=== PATIENT | female | born 1980 | race American Indian/Alaskan Native ===

== ENCOUNTER 2018-10-10 08:42 | Emergency (ER) | payer MEDICAID ==
[2018-10-10] MEDS ORDERED: SOLU-Medrol IM ONE (09:18)
[2018-10-10] MEDS ORDERED: PROVENTIL IH ONE (09:18)
[2018-10-10] MEDS ORDERED: ZITHROMAX PO ONE (09:19)
--- NOTE | 2018-10-10 09:19 | Emergency Department Report ---
Minor Respiratory - HPI Chief Complaint: Adult Asthma Stated Complaint: ASTHMA/BACK PAIN Time Seen by Provider: 10/10/18 09:15 Duration: 3 Days Pain Location: Chest Severity: mild Minor Respiratory: Yes Able to Tolerate Fluids, Yes Shortness of Breath, No Rhinorrhea, No Sore Throat, No Ear Pain, No Cough, No Sick Contacts, No Hemoptysis, No Chest Pain, No Fever Other History: She is a 37-year-old -[place] female who comes to the ER today with complaint of her asthma acting up. She states that she has had shortness of breath and wheezing with activity. Sat on admission was 98% on room air. She denies chest pain. Patient does state that she has been intubated numerous times in the past. Patient is on Ventolin and Proventil at home. However these are not helping. ED Review of Systems ROS: Stated complaint: ASTHMA/BACK PAIN Other details as noted in HPI Comment: All other systems reviewed and negative Constitutional: denies: chills, fever Eyes: denies: eye pain ENT: denies: ear pain Respiratory: see HPI, SOB with exertion, wheezing. denies: cough, orthopnea, shortness of breath Cardiovascular: denies: chest pain Endocrine: denies: excessive sweating Gastrointestinal: denies: abdominal pain Genitourinary: denies: urgency Musculoskeletal: denies: back pain Skin: denies: rash Neurological: denies: headache Psychiatric: denies: anxiety Hematological/Lymphatic: denies: easy bleeding ED Past Medical Hx - Past Medical History Hx Psychiatric Treatment: Yes (anxiety) Hx Asthma: Yes Additional medical history: intubated x 5 - Surgical History Past Surgical History?: Yes Additional Surgical History: hernia repair 2011, x2,tubiligation - Social History Smoking Status: Current Every Day Smoker Substance Use Type: None - Medications Home Medications: Home Medications Medication Instructions Recorded Confirmed Last Taken Type ALBUTEROL NEB's [Proventil] 2.5 mg IH Q6H PRN #1 pack 09/10/18 Unknown Rx Albuterol Sulfate [Ventolin Hfa] 18 gm IH Q6H PRN #1 hfa.aer.ad 09/10/18 Unknown Rx Azithromycin 250 mg PO DAILY #4 tablet 10/10/18 Unknown Rx predniSONE [Deltasone] 20 mg PO QDAY #5 tab 10/10/18 Unknown Rx Minor Respiratory Exam - Exam General: Vital signs noted. No distress. Alert and acting appropriately. HEENT: Yes Moist Mucous Membranes, No Pharyngeal Erythema, No Pharyngeal Exudates, No Rhinorrhea, No Conjuctival Injection, No Frontal Tenderness, No Maxillary Tenderness Ear: Neither TM Bulge, Neither TM Erythema, Neither EAC Pain, Neither EAC Discharge Neck: Yes Supple, No Adenopathy Lungs: Yes Good Air Exchange, Yes Wheezes, No Ronchi, No Stridor, No Cough, No Labored Respirations, No Retractions, No Use of Accessory Muscles, No Other Abnormal Lung Sounds Heart: Yes Regular (hr on reexam 100 p tx), No Murmur Abdomen: Yes Normal Bowel Sounds, No Tenderness, No Peritoneal Signs Skin: No Rash, No Edema Neurologic: Alert and oriented, no deficits. Musculoskeletal: Unremarkable. ED Course Vital Signs 10/10/18 09:04 Temperature 98.1 F Pulse Rate 121 H Respiratory 20 Rate Blood Pressure 128/78 O2 Sat by Pulse 98 Oximetry ED Medical Decision Making - Medical Decision Making duoneb and solumederol improved wheezing sat 99 on room air denies sob pt states she has to leave to go to orientation has inhalers with her - Differential Diagnosis asthma ae Critical care attestation.: If time is entered above; I have spent that time in minutes in the direct care of this critically ill patient, excluding procedure time. ED Disposition Clinical Impression: Asthma with acute exacerbation Disposition: TO HOME OR SELFCARE Is pt being admited?: No Does the pt Need Aspirin: No Condition: Stable Instructions: Asthma (ED) Prescriptions: Azithromycin 250 mg PO DAILY #4 tablet predniSONE [Deltasone] 20 mg PO QDAY #5 tab Referrals: PRIMARY CARE, [Primary Care Provider] - 3-5 Days Time of Disposition: 10:01
[2018-10-10] MEDS ORDERED: DUONEB *Not for PRN Use IH ONE (09:21)
[2018-10-10 10:43] VITALS: BP 147/85
== END 2018-10-10 10:40 | disposition home or self-care (01) ==
LOC: ED 08:42
DX: J45.901 Unspecified asthma with (acute) exacerbation (principal); F41.9 Anxiety disorder, unspecified; F17.200 Nicotine dependence, unspecified, uncomplicated; Z98.51 Tubal ligation status
CPT/HCPCS: 94640; 96372; 99282; J2930

== ENCOUNTER 2018-10-30 08:54 | Emergency (ER) | payer MEDICAID ==
[2018-10-30] MEDS ORDERED: PROVENTIL IH ONE (10:00)
[2018-10-30] MEDS ORDERED: SOLU-Medrol IM ONE (10:00)
[2018-10-30] MEDS ORDERED: ATROVENT IH ONE (10:00)
[2018-10-30] MEDS ORDERED: ULTRAM PO ONE (10:07)
--- NOTE | 2018-10-30 10:12 | Emergency Department Report ---
ED General Adult HPI - General Chief complaint: Upper Respiratory Infection Stated complaint: BACK PAIN/WHEEZING Time Seen by Provider: 10/30/18 09:41 Source: patient Mode of arrival: Ambulatory Limitations: No Limitations - History of Present Illness Initial comments: Patient presents to the emergency department with a chief complaint of increased wheezing, coughing and congestion for the last couple days. Patient has a history of asthma and is currently using her Advair inhaler and every 4 hours breathing treatments. Patient is also using a rescue inhaler in between those treatments. Patient denies any chest pain, abdominal pain, headache. But does complain of some upper back pain from coughing. -: Gradual Location: back Severity scale (0 -10): 3 Quality: aching Consistency: constant Improves with: none Worsens with: none Associated Symptoms: denies other symptoms Treatments Prior to Arrival: none - Related Data Previous Rx's Medication Instructions Recorded Last Taken Type ALBUTEROL NEB's [Proventil] 2.5 mg IH Q6H PRN #1 pack 09/10/18 Unknown Rx Albuterol Sulfate [Ventolin Hfa] 18 gm IH Q6H PRN #1 hfa.aer.ad 09/10/18 Unknown Rx Azithromycin 250 mg PO DAILY #4 tablet 10/10/18 Unknown Rx predniSONE [Deltasone] 20 mg PO QDAY #5 tab 10/10/18 Unknown Rx predniSONE [Deltasone] 20 mg PO QDAY #15 tab 10/30/18 Unknown Rx Allergies Allergy/AdvReac Type Severity Reaction Status Date / Time No Known Allergies Allergy Verified 10/30/18 09:07 ED Review of Systems ROS: Stated complaint: BACK PAIN/WHEEZING Other details as noted in HPI Comment: All other systems reviewed and negative Constitutional: denies: chills, fever Eyes: denies: eye pain, eye discharge, vision change ENT: denies: ear pain, throat pain Respiratory: cough. denies: shortness of breath, wheezing Cardiovascular: denies: chest pain, palpitations Endocrine: no symptoms reported Gastrointestinal: denies: abdominal pain, nausea, diarrhea Genitourinary: denies: urgency, dysuria, discharge Musculoskeletal: denies: back pain, joint swelling, arthralgia Skin: denies: rash, lesions Neurological: denies: headache, weakness, paresthesias Psychiatric: denies: anxiety, depression Hematological/Lymphatic: denies: easy bleeding, easy bruising ED Past Medical Hx - Past Medical History Hx Psychiatric Treatment: Yes (anxiety) Hx Asthma: Yes Additional medical history: intubated x 5 - Surgical History Additional Surgical History: hernia repair 2012, x2,tubiligation - Social History Smoking Status: Current Every Day Smoker Substance Use Type: None - Medications Home Medications: Home Medications Medication Instructions Recorded Confirmed Last Taken Type ALBUTEROL NEB's [Proventil] 2.5 mg IH Q6H PRN #1 pack 09/10/18 Unknown Rx Albuterol Sulfate [Ventolin Hfa] 18 gm IH Q6H PRN #1 hfa.aer.ad 09/10/18 Unknown Rx Azithromycin 250 mg PO DAILY #4 tablet 10/10/18 Unknown Rx predniSONE [Deltasone] 20 mg PO QDAY #5 tab 10/10/18 Unknown Rx predniSONE [Deltasone] 20 mg PO QDAY #15 tab 10/30/18 Unknown Rx ED Physical Exam - General Limitations: No Limitations General appearance: alert, in no apparent distress - Head Head exam: Present: atraumatic, normocephalic - Eye Eye exam: Present: normal appearance, PERRL, EOMI - ENT ENT exam: Present: mucous membranes moist - Neck Neck exam: Present: normal inspection - Respiratory Respiratory exam: Present: normal lung sounds bilaterally, wheezes. Absent: respiratory distress, rales - Cardiovascular Cardiovascular Exam: Present: regular rate, normal rhythm. Absent: systolic murmur, diastolic murmur, rubs, gallop - GI/Abdominal GI/Abdominal exam: Present: soft, normal bowel sounds. Absent: distended, tenderness - Extremities Exam Extremities exam: Present: normal inspection - Back Exam Back exam: Present: normal inspection - Neurological Exam Neurological exam: Present: alert, oriented X3, CN II-XII intact. Absent: motor sensory deficit - Psychiatric Psychiatric exam: Present: normal affect, normal mood - Skin Skin exam: Present: warm, dry, intact, normal color. Absent: rash ED Course Vital Signs 10/30/18 10:18 Pulse Rate [ 84 Bilateral] Respiratory 18 Rate [Bilateral ] ED Medical Decision Making - Medical Decision Making improved after hour long breathing tx Critical care attestation.: If time is entered above; I have spent that time in minutes in the direct care of this critically ill patient, excluding procedure time. ED Disposition Clinical Impression: Asthma Disposition: DC- TO HOME OR SELFCARE Is pt being admited?: No Does the pt Need Aspirin: No Condition: Stable Instructions: Asthma (ED) Additional Instructions: return if worse Prescriptions: predniSONE [Deltasone] 20 mg PO QDAY #15 tab Referrals: ELLEN SLOAN MD [Primary Care Provider] - 3-5 Days [facility] [Provider Group] - 3-5 Days [facility] [Provider Group] - 3-5 Days Time of Disposition: 11:35
== END 2018-10-30 11:54 | disposition home or self-care (01) ==
LOC: ED 08:54
DX: J45.909 Unspecified asthma, uncomplicated (principal); F41.9 Anxiety disorder, unspecified; F17.200 Nicotine dependence, unspecified, uncomplicated
CPT/HCPCS: 94640; 96372; 99282; J2930

== ENCOUNTER 2019-03-03 09:28 | Emergency (ER) | payer MEDICAID ==
[2019-03-03 09:46] VITALS: BP 136/85
[2019-03-03] MEDS ORDERED: DELTASONE PO ONE (10:19)
[2019-03-03] MEDS ORDERED: ATROVENT IH ONE (10:19)
[2019-03-03] MEDS ORDERED: PROVENTIL IH ONE (10:19)
--- NOTE | 2019-03-03 10:27 | Emergency Department Report ---
HPI - General Chief Complaint: Upper Respiratory Infection Time Seen by Provider: 03/03/19 09:56 - HPI HPI: 38-year-old -[place] female presents to the emergency department with complaint of a 3 to four-day history of some wheezing, mixed dry and productive cough. She also has complaint of some worsening of a chronic ventral hernia. The patient says that she has been told that she needs surgery for the hernia but she was told that she could not receive surgery until she lost 100 pounds. The patient has a past medical history of asthma and has been intubated multiple times in the past secondary to her asthma. She has a past medical history is well of anxiety, previous hernia repair in 2011, 2 and a tubal ligation. No recent travel. Her children are currently here with some upper respiratory type symptoms. Her primary care physician is Dr. Myranda Villarreal. The patient is a tobacco smoker but denies smoking in the house. ED Past Medical Hx - Past Medical History Previous Medical History?: Yes Hx Psychiatric Treatment: Yes (anxiety) Hx Asthma: Yes Additional medical history: intubated x 5 - Surgical History Past Surgical History?: Yes Additional Surgical History: hernia repair 2011, x2,tubiligation - Social History Smoking Status: Current Every Day Smoker - Medications Home Medications: Home Medications Medication Instructions Recorded Confirmed Last Taken Type ALBUTEROL NEB's [Proventil] 2.5 mg IH Q6H PRN #1 pack 09/10/18 Unknown Rx Albuterol Sulfate [Ventolin Hfa] 18 gm IH Q6H PRN #1 hfa.aer.ad 09/10/18 Unknown Rx Azithromycin 250 mg PO DAILY #4 tablet 10/10/18 Unknown Rx predniSONE [Deltasone] 20 mg PO QDAY #5 tab 10/10/18 Unknown Rx predniSONE [Deltasone] 20 mg PO QDAY #15 tab 10/30/18 Unknown Rx Benzonatate [Tessalon Perles] 100 mg PO Q8HR #30 capsule 02/07/19 Unknown Rx guaiFENesin [Robitussin] 200 mg PO TID #100 ml 02/07/19 Unknown Rx Prednisone [predniSONE 10 mg 10 mg PO .TAPER #1 tab.ds.pk 03/03/19 Unknown Rx (6-Day Pack, 21 Tabs)] guaiFENesin/CODEINE [Robitussin AC] 5 ml PO Q6H PRN #80 oral.liqd 03/03/19 Unknown Rx ED Review of Systems ROS: Stated complaint: COUGHING/ABD/BACK PAIN Other details as noted in HPI Constitutional: denies: chills, fever Eyes: denies: eye pain, vision change ENT: denies: ear pain, throat pain Respiratory: cough, wheezing Cardiovascular: denies: chest pain, edema Gastrointestinal: abdominal pain. denies: vomiting, diarrhea, constipation Genitourinary: denies: dysuria, discharge Musculoskeletal: denies: back pain, arthralgia Skin: denies: rash, lesions Neurological: denies: headache, weakness Physical Exam - Physical Exam Vital Signs: Vital Signs 03/03/19 09:43 Temperature 98.6 F Pulse Rate 84 Respiratory 18 Rate Blood Pressure 136/85 [Right] O2 Sat by Pulse 97 Oximetry Physical Exam: GENERAL: The patient is well-developed well-nourished. HENT: Normocephalic. Atraumatic. Patient has moist mucous membranes. Oropharynx is clear. EYES: Extraocular motions are intact. Pupils equal reactive to light bilaterally. NECK: Supple. Trachea is midline. CHEST/LUNGS: Moderate wheezing throughout the chest. No tachypnea or accessory muscle use. There is no respiratory distress noted. HEART/CARDIOVASCULAR: Regular. There is no tachycardia. There is no murmur. ABDOMEN: Abdomen is soft. Patient has some very mild tenderness to palpation to the lower to mid abdomen where she has a reducible ventral hernia. Patient has normal bowel sounds. Morbidly obese habitus. SKIN: Skin is warm and dry. NEURO: The patient is awake, alert, and oriented. The patient is cooperative. The patient has no focal neurologic deficits. The patient has normal speech. MUSCULOSKELETAL: There is no tenderness or deformity. There is no evidence of acute injury. ED Course Vital Signs 03/03/19 09:43 Temperature 98.6 F Pulse Rate 84 Respiratory 18 Rate Blood Pressure 136/85 [Right] O2 Sat by Pulse 97 Oximetry ED Medical Decision Making - Radiology Data Radiology results: image reviewed interpreted by me: Chest x-ray does not show any acute process. There are no pleural effusions, obvious pneumonia and there is no pneumothorax. - Medical Decision Making Patient presents to the emergency department with the complaint of some wheezing and coughing. She's been using some Tessalon Perles for her cough without any relief. She has a history of significant asthma that has required intubations in the past. On examination she does have some moderate wheezing/bronchospasm but does not appear in any acute distress. She is sitting comfortably in the chair, eating chips, and interacting with her family. Her vital signs and stable throughout her ED course including being afebrile and no tachypnea or hypoxia. A chest x-ray was done that does not appear to show any acute process. The reading by radiology was very nonspecific and says it could include mu ltiple things including viral pneumonia, bronchitis or reactive airway disease. The patient did not have any significant coughing fits. I did not hear any rhonchi. She is afebrile and does not have any tachypnea or hypoxia. I think pneumonia is a lower suspicion. She was given a dose of prednisone and a breathing treatment with albuterol and Atrovent. On reevaluation she is improved. The patient appears safe for discharge home and has been instructed to follow-up with her primary care physician, Dr. Myranda Villarreal. She was placed on a Medrol Dosepak and given some Robitussin-AC for her cough. She understands the narcotic and sedating nature of the Robitussin-AC and that she cannot take it while driving, working, being responsible for children, and that it cannot be mixed with alcohol. She will return to the ER with any worsening of her symptoms or any acute distress. - Differential Diagnosis asthma, pneumonia, bronchitis, CHF Critical Care Time: No Critical care attestation.: If time is entered above; I have spent that time in minutes in the direct care of this critically ill patient, excluding procedure time. ED Disposition Clinical Impression: Tobacco use, Bronchospasm Asthma exacerbation Qualifiers: Asthma severity: unspecified severity Asthma persistence: unspecified Qualified Code(s): J45.901 - Unspecified asthma with (acute) exacerbation Ventral hernia Qualifiers: Obstruction and gangrene presence: without obstruction or gangrene Qualified Code(s): K43.9 - Ventral hernia without obstruction or gangrene Disposition: DC-01 TO HOME OR SELFCARE Is pt being admited?: No Condition: Stable Instructions: Asthma (ED), How to Stop Smoking (ED), Ventral Hernia (ED) Additional Instructions: Please follow-up with your primary care physician in the next few days. I am giving you a referral for a local general surgeon, Dr. Paris, in case she would like to discuss your hernia and your options. Please try and quit smoking. Return to the emergency Department with any worsening of your symptoms or any acute distress. You have been prescribed a medication that is sedating and therefore should not be taken prior to driving, working, and responsible for children and in no way should be mixed with alcohol of any quantity. Prescriptions: Prednisone [predniSONE 10 mg (6-Day Pack, 21 Tabs)] 10 mg PO .TAPER #1 tab.ds.pk guaiFENesin/CODEINE [Robitussin AC] 5 ml PO Q6H PRN #80 oral.liqd PRN Reason: Cough Referrals: ROXANNE VILLARREAL MD [Primary Care Provider] - 2-3 Days ELEAZAR PARIS MD [Staff Physician] - 2-3 Days Time of Disposition: 11:46
--- NOTE | 2019-03-03 13:08 | XRay Report ---
PROCEDURE: XR CHEST ROUTINE 2V TECHNIQUE: PA and lateral chest radiographs were obtained. HISTORY: cough COMPARISONS: Chest x-ray September 10, 2018. FINDINGS: Cardiac silhouette is within normal limits. There is no effusion. There is no pneumothorax. There is no consolidation. Mild bilateral perihilar p eribronchial thickening. There are no suspicious osseous lesions. IMPRESSION: * Pulmonary findings may represent pneumonia (possibly viral), bronchitis, or reactive airway diseas e. This document is electronically signed by Adrien Nuñez MD., March 03 2019 01:06:28 PM ET
== END 2019-03-03 12:05 | disposition home or self-care (01) ==
LOC: ED 09:28
DX: J45.901 Unspecified asthma with (acute) exacerbation (principal); K43.9 Ventral hernia without obstruction or gangrene; F17.200 Nicotine dependence, unspecified, uncomplicated; F41.9 Anxiety disorder, unspecified; Z98.51 Tubal ligation status
CPT/HCPCS: 71046; 94640; 99283; J7512